=== PATIENT | male | born 1960 | race American Indian/Alaskan Native ===

== ENCOUNTER 2020-11-29 08:00 | Outpatient (CLI) | payer OTHER ==
[~2020-11-29 08:00] MED LIST: HYZAAR 50-12.1 UDTAB; VYTORIN 10-20 M1 TAB
== END 2020-11-29 08:30 | disposition home or self-care (01) ==
LOC: PPH VACUNA 08:00
PROVIDERS: ATTEND Emergency Medicine Pediatric Emergency Medicine
DX: Z23 Encounter for immunization (principal)